=== PATIENT | male | born 1950 | race Caucasian/White ===

== ENCOUNTER 2019-05-15 11:47 | Inpatient (IN) | payer MEDICARE, OTHER ==
[2019-05-15] MEDS ORDERED: LORazepam 2 MG/ML INJ IV STA ×3 (12:22→15:30)
[2019-05-15] MEDS ORDERED: SODIUM CHLORIDE 0.9% 1,000 ML IV STA ×2 (12:22)
--- NOTE | 2019-05-15 12:32 | ED ---
Psych HPI - General Chief Complaint: Psychiatric Symptoms Stated Complaint: sent for 23hr medical eval Time Seen by Provider: 05/15/19 12:05 Source: family, RN notes reviewed Mode of arrival: wheelchair - History of Present Illness Initial Comments: This is a 68-year-old male with a history of depression and history of Shows stability seizures who for about the last one half months is been any change in his mental status per family members. He gets this he bad over last 2-3 days he's had fevers twitching of his extremities and diaphoretic chills at about a 15 pound weight loss during this same period time. He was sent here from his psychiatrist's office for evaluation the concern is for serotonin syndrome. He's been on Prozac for about 3 weeks along with Xanax. No other modifying factors currently MD Complaint: altered mental status, other - Related Data Home Medications Medication Instructions Recorded Confirmed Aspirin EC [Ecotrin Low Dose] 81 mg PO DAILY 05/15/19 05/15/19 Atorvastatin [Lipitor] 10 mg PO HS 05/15/19 05/15/19 Bisacodyl [Dulcolax] 10 mg RECTAL DAILY PRN 05/15/19 05/15/19 Calcitrate 950mg 950 mg PO DAILY 05/15/19 05/15/19 Ergocalciferol (Vitamin D2) 50,000 unit PO TU 05/15/19 05/15/19 [Vitamin D2] Lacosamide [Vimpat] 100 mg PO BID 05/15/19 05/15/19 Loratadine 10 mg PO DAILY PRN 05/15/19 05/15/19 Losartan/Hydrochlorothiazide 1 tab PO DAILY 05/15/19 05/15/19 [Losartan-Hctz 100-25 mg Tab] Magnesium Hydroxide [Milk of 1,600 mg PO DAILY PRN 05/15/19 05/15/19 Magnesia] Magnesium Oxide [Mag-Ox] 250 mg PO DAILY 05/15/19 05/15/19 Multivitamin,Therapeutic [Thera] 1 tab PO DAILY@1700 05/15/19 05/15/19 Na Phos,M-B/Na Phos,Di-Ba [Fleet 133 ml RECTAL DAILY PRN 05/15/19 05/15/19 Adult] Primidone [Mysoline] 50 mg PO BID 05/15/19 05/15/19 Ranitidine HCl [Zantac] 150 mg PO DAILY 05/15/19 05/15/19 lamoTRIgine [LaMICtal] 200 mg PO BID 05/15/19 05/15/19 Allergies Allergy/AdvReac Type Severity Reaction Status Date / Time clarithromycin [From Biaxin] Allergy Unknown Verified 05/15/19 12:40 Childhood Review of Systems ROS Statement: Those systems with pertinent positive or pertinent negative responses have been documented in the HPI. ROS Other: All systems not noted in ROS Statement are negative. Past Medical History Past Medical History: Hyperlipidemia, Seizure Disorder Additional Past Medical History / Comment(s): Mentally disabled, History of Any Multi-Drug Resistant Organisms: None Reported Past Surgical History: No Surgical Hx Reported Past Psychological History: Anxiety, Bipolar, Depression Smoking Status: Former smoker Past Alcohol Use History: None Reported Past Drug Use History: None Reported General Exam - General Exam Comments Initial Comments: Is a well-developed asthenic appearing male but noted to be hitting himself with shaking and tremors and swatting at himself and the air. Limitations: no limitations General appearance: alert, anxious, lethargic Head exam: Present: atraumatic, normocephalic, normal inspection Eye exam: Present: normal appearance, PERRL, EOMI. Absent: scleral icterus, conjunctival injection, periorbital swelling ENT exam: Present: mucous membranes dry Neck exam: Present: normal inspection. Absent: tenderness, meningismus, lymphadenopathy Respiratory exam: Present: normal lung sounds bilaterally. Absent: respiratory distress, wheezes, rales, rhonchi, stridor Cardiovascular Exam: Present: regular rate, normal rhythm, normal heart sounds. Absent: systolic murmur, diastolic murmur, rubs, gallop, clicks GI/Abdominal exam: Present: soft, normal bowel sounds. Absent: distended, tenderness, guarding, rebound, rigid Rectal exam: Present: deferred Extremities exam: Present: normal inspection, full ROM, normal capillary refill. Absent: tenderness, pedal edema, joint swelling, calf tenderness Back exam: Present: normal inspection Neurological exam: Present: alert, oriented X3, CN II-XII intact Psychiatric exam: Present: normal affect, normal mood Skin exam: Present: warm, intact, normal color, diaphoretic. Absent: rash Course Vital Signs 05/15/19 05/15/19 05/15/19 11:53 18:24 20:06 Pulse Rate 87 65 81 Respiratory 20 17 16 Rate Blood Pressure 134/75 134/75 O2 Sat by Pulse 93 L 94 L Oximetry - Reevaluation(s) Reevaluation #1: 05/15/19 20:13 Patient was reevaluated on multiple occasions he did require sedation to get the imaging studies done. This did take an extensive amount of time. Medical Decision Making - Medical Decision Making Patient is resting comfortably at this time after the medication was given IV fluids. I did discuss the case with caregivers I also discussed the case with Dr. Bansal. The patient will be admitted for IV fluids continued observation and psychiatric consultation in the morning. - Lab Data Result diagrams: 05/15/19 12:41 05/15/19 12:41 Lab Results 05/15/19 05/15/19 05/15/19 Range/Units 12:41 12:41 12:41 WBC 6.6 (3.8-10.6) k/uL RBC 4.02 L (4.30-5.90) m/uL Hgb 12.4 L (13.0-17.5) gm/dL Hct 37.1 L (39.0-53.0) % MCV 92.1 (80.0-100.0) fL MCH 30.8 (25.0-35.0) pg MCHC 33.4 (31.0-37.0) g/dL RDW 14.5 (11.5-15.5) % Plt Count 258 (150-450) k/uL Neutrophils % 69 % Lymphocytes % 19 % Monocytes % 7 % Eosinophils % 2 % Basophils % 0 % Neutrophils # 4.6 (1.3-7.7) k/uL Lymphocytes # 1.2 (1.0-4.8) k/uL Monocytes # 0.5 (0-1.0) k/uL Eosinophils # 0.1 (0-0.7) k/uL Basophils # 0.0 (0-0.2) k/uL Sodium 148 H (137-145) mmol/L Potassium 3.8 (3.5-5.1) mmol/L Chloride 107 (98-107) mmol/L Carbon Dioxide 30 (22-30) mmol/L Anion Gap 11 mmol/L BUN 38 H (9-20) mg/dL Creatinine 0.97 (0.66-1.25) mg/dL Est GFR (CKD-EPI)AfAm >90 (>60 ml/min/1.73 sqM) Est GFR (CKD-EPI)NonAf 79 (>60 ml/min/1.73 sqM) Glucose 122 H (74-99) mg/dL Plasma Lactic Acid Dean 2.0 (0.7-2.0) mmol/L Calcium 10.6 H (8.4-10.2) mg/dL Magnesium 1.9 (1.6-2.3) mg/dL Total Bilirubin 0.8 (0.2-1.3) mg/dL AST 43 (17-59) U/L ALT 27 (21-72) U/L Alkaline Phosphatase 68 (38-126) U/L Ammonia <9 (<30) umol/L Creatine Kinase 407 H (55-170) U/L Troponin I (0.000-0.034) ng/mL Total Protein 7.3 (6.3-8.2) g/dL Albumin 4.6 (3.5-5.0) g/dL Lipase 124 (23-300) U/L 05/15/19 Range/Units 12:41 WBC (3.8-10.6) k/uL RBC (4.30-5.90) m/uL Hgb (13.0-17.5) gm/dL Hct (39.0-53.0) % MCV (80.0-100.0) fL MCH (25.0-35.0) pg MCHC (31.0-37.0) g/dL RDW (11.5-15.5) % Plt Count (150-450) k/uL Neutrophils % % Lymphocytes % % Monocytes % % Eosinophils % % Basophils % % Neutrophils # (1.3-7.7) k/uL Lymphocytes # (1.0-4.8) k/uL Monocytes # (0-1.0) k/uL Eosinophils # (0-0.7) k/uL Basophils # (0-0.2) k/uL Sodium (137-145) mmol/L Potassium (3.5-5.1) mmol/L Chloride (98-107) mmol/L Carbon Dioxide (22-30) mmol/L Anion Gap mmol/L BUN (9-20) mg/dL Creatinine (0.66-1.25) mg/dL Est GFR (CKD-EPI)AfAm (>60 ml/min/1.73 sqM) Est GFR (CKD-EPI)NonAf (>60 ml/min/1.73 sqM) Glucose (74-99) mg/dL Plasma Lactic Acid Dean (0.7-2.0) mmol/L Calcium (8.4-10.2) mg/dL Magnesium (1.6-2.3) mg/dL Total Bilirubin (0.2-1.3) mg/dL AST (17-59) U/L ALT (21-72) U/L Alkaline Phosphatase (38-126) U/L Ammonia (<30) umol/L Creatine Kinase (55-170) U/L Troponin I <0.012 (0.000-0.034) ng/mL Total Protein (6.3-8.2) g/dL Albumin (3.5-5.0) g/dL Lipase (23-300) U/L - Radiology Data Radiology results: report reviewed (I did review the imaging and reports no evidence of acute findings. Chronic changes were noted.), image reviewed Disposition Clinical Impression: Serotonin syndrome, Drug-induced psychotic disorder Disposition: ADMITTED IP TO THIS [facility] Condition: Fair Referrals: Gerry Gonzales MD [Primary Care Provider] - 1-2 days
[2019-05-15 13:09] LABS: Basophils % (A) 0 %; Eosinophils # (A) 0.1 k/uL (0-0.7); Eosinophils % (A) 2 %; HCT 37.1 % (39.0-53.0); HGB 12.4 gm/dL (13.0-17.5); Lymphocytes # (A) 1.2 k/uL (1.0-4.8); Lymphocytes % (A) 19 %; MCH 30.8 pg (25.0-35.0); MCHC 33.4 g/dL (31.0-37.0); MCV 92.1 fL (80.0-100.0); Mean Platelet Volume 7.1; Monocytes # (A) 0.5 k/uL (0-1.0); Monocytes % (A) 7 %; Neutrophils # (A) 4.6 k/uL (1.3-7.7); Neutrophils % (A) 69 %; Platelet Count 258 k/uL (150-450); RBC 4.02 m/uL (4.30-5.90); RDW 14.5 % (11.5-15.5); WBC 6.6 k/uL (3.8-10.6)
[2019-05-15 13:15] LABS: Ammonia <9 umol/L (<30)
[2019-05-15 13:16] LABS: ALT 27 U/L (21-72); AST 43 U/L (17-59); African American GFR (CKD) >90 (>60 ml/min/1.73 sqM); Albumin 4.6 g/dL (3.5-5.0); Alkaline Phosphatase 68 U/L (38-126); Anion Gap 11 mmol/L; Blood Urea Nitrogen 38 mg/dL (9-20); Calcium 10.6 mg/dL (8.4-10.2); Carbon Dioxide 30 mmol/L (22-30); Chloride 107 mmol/L (98-107); Creatine Kinase 407 U/L (55-170); Glucose 122 mg/dL (74-99); Lipase 124 U/L (23-300); Magnesium 1.9 mg/dL (1.6-2.3); Potassium 3.8 mmol/L (3.5-5.1); Sodium 148 mmol/L (137-145); Total Bilirubin 0.8 mg/dL (0.2-1.3); Total Protein 7.3 g/dL (6.3-8.2)
[2019-05-15] MEDS ORDERED: KETAMINE 50 MG/ML 10 ML VIAL IM ONE (14:01)
--- NOTE | 2019-05-15 17:01 | CT ---
EXAMINATION TYPE: CT brain wo con DATE OF EXAM: 05/15/2019 COMPARISON: 07/31/2009 HISTORY: Mental status changes CT DLP: 1476.4 mGycm Automated exposure control for dose reduction was used. FINDINGS: There is cerebral cortical atrophy. There is no mass effect nor midline shift. There is no evidence o f intracranial hemorrhage. The calvarium is intact. There is hypodensity in the periventricular white matter. IMPRESSION: CEREBRAL ATROPHY AND CHRONIC SMALL VESSEL ISCHEMIA. THIS HAS PROGRESSED COMPARED TO OLD EXAM. NO ACUT E INTRACRANIAL ABNORMALITY.
--- NOTE | 2019-05-15 17:10 | XR ---
EXAMINATION TYPE: XR chest 2V DATE OF EXAM: 05/15/2019 COMPARISON: NONE HISTORY: Cough TECHNIQUE: Frontal and lateral views of the chest are obtained. FINDINGS: There is elevated right diaphragm. Heart size is normal. There is no heart failure. There is no sign of pleural effusion. Bony thorax is intact. IMPRESSION: Mild elevated right diaphragm could relate to partial paralysis. Normal heart.
[2019-05-15] MEDS ORDERED: NALOXONE 0.4 MG/ML 1 ML VIAL IV PRN (20:18)
[2019-05-15] MEDS ORDERED: BISACODYL 10 MG SUPP RECTAL PRN (20:21)
[2019-05-15] MEDS ORDERED: LORATADINE 10 MG TAB PO PRN (20:21)
[2019-05-15] MEDS ORDERED: NA PHOS,M-B/NA PHOS,DI-BA 133 ML ENEMA RECTAL PRN (20:21)
--- NOTE | 2019-05-15 20:26 | ED ---
Medical Decision Making - Lab Data Result diagrams: 05/15/19 12:41 05/15/19 12:41 Lab Results 05/15/19 05/15/19 05/15/19 Range/Units 12:41 12:41 12:41 WBC 6.6 (3.8-10.6) k/uL RBC 4.02 L (4.30-5.90) m/uL Hgb 12.4 L (13.0-17.5) gm/dL Hct 37.1 L (39.0-53.0) % MCV 92.1 (80.0-100.0) fL MCH 30.8 (25.0-35.0) pg MCHC 33.4 (31.0-37.0) g/dL RDW 14.5 (11.5-15.5) % Plt Count 258 (150-450) k/uL Neutrophils % 69 % Lymphocytes % 19 % Monocytes % 7 % Eosinophils % 2 % Basophils % 0 % Neutrophils # 4.6 (1.3-7.7) k/uL Lymphocytes # 1.2 (1.0-4.8) k/uL Monocytes # 0.5 (0-1.0) k/uL Eosinophils # 0.1 (0-0.7) k/uL Basophils # 0.0 (0-0.2) k/uL Sodium 148 H (137-145) mmol/L Potassium 3.8 (3.5-5.1) mmol/L Chloride 107 (98-107) mmol/L Carbon Dioxide 30 (22-30) mmol/L Anion Gap 11 mmol/L BUN 38 H (9-20) mg/dL Creatinine 0.97 (0.66-1.25) mg/dL Est GFR (CKD-EPI)AfAm >90 (>60 ml/min/1.73 sqM) Est GFR (CKD-EPI)NonAf 79 (>60 ml/min/1.73 sqM) Glucose 122 H (74-99) mg/dL Plasma Lactic Acid Dean 2.0 (0.7-2.0) mmol/L Calcium 10.6 H (8.4-10.2) mg/dL Magnesium 1.9 (1.6-2.3) mg/dL Total Bilirubin 0.8 (0.2-1.3) mg/dL AST 43 (17-59) U/L ALT 27 (21-72) U/L Alkaline Phosphatase 68 (38-126) U/L Ammonia <9 (<30) umol/L Creatine Kinase 407 H (55-170) U/L Troponin I (0.000-0.034) ng/mL Total Protein 7.3 (6.3-8.2) g/dL Albumin 4.6 (3.5-5.0) g/dL Lipase 124 (23-300) U/L 05/15/19 Range/Units 12:41 WBC (3.8-10.6) k/uL RBC (4.30-5.90) m/uL Hgb (13.0-17.5) gm/dL Hct (39.0-53.0) % MCV (80.0-100.0) fL MCH (25.0-35.0) pg MCHC (31.0-37.0) g/dL RDW (11.5-15.5) % Plt Count (150-450) k/uL Neutrophils % % Lymphocytes % % Monocytes % % Eosinophils % % Basophils % % Neutrophils # (1.3-7.7) k/uL Lymphocytes # (1.0-4.8) k/uL Monocytes # (0-1.0) k/uL Eosinophils # (0-0.7) k/uL Basophils # (0-0.2) k/uL Sodium (137-145) mmol/L Potassium (3.5-5.1) mmol/L Chloride (98-107) mmol/L Carbon Dioxide (22-30) mmol/L Anion Gap mmol/L BUN (9-20) mg/dL Creatinine (0.66-1.25) mg/dL Est GFR (CKD-EPI)AfAm (>60 ml/min/1.73 sqM) Est GFR (CKD-EPI)NonAf (>60 ml/min/1.73 sqM) Glucose (74-99) mg/dL Plasma Lactic Acid Dean (0.7-2.0) mmol/L Calcium (8.4-10.2) mg/dL Magnesium (1.6-2.3) mg/dL Total Bilirubin (0.2-1.3) mg/dL AST (17-59) U/L ALT (21-72) U/L Alkaline Phosphatase (38-126) U/L Ammonia (<30) umol/L Creatine Kinase (55-170) U/L Troponin I <0.012 (0.000-0.034) ng/mL Total Protein (6.3-8.2) g/dL Albumin (3.5-5.0) g/dL Lipase (23-300) U/L Critical Care Time Critical Care Time: Yes Critical Care Time: 43 minutes of critical care time which includes initial presentation with history physical labs x-rays multiple reevaluation the patient to responsive therapy discussion the caregivers discussion with the main physician admission orders and documentation of the above Disposition Clinical Impression: Serotonin syndrome, Drug-induced psychotic disorder, Rhabdomyolysis Disposition: ADMITTED IP TO THIS HOSP Condition: Fair Referrals: Gerry Gonzales MD [Primary Care Provider] - 1-2 days
[2019-05-15] MEDS ORDERED: SODIUM CHLORIDE 0.9% 1,000 ML IV SCH (20:30)
[2019-05-15] MEDS: SODIUM CHLORIDE 0.9% 1,000 ML IV SCH (22:00)
[2019-05-15] MEDS: LORazepam 2 MG/ML INJ IV PRN (22:58)
[2019-05-15] MEDS: LACOSAMIDE 50 MG TABLET PO SCH (23:09)
[2019-05-15] MEDS: ATORVASTATIN 10 MG TAB PO SCH (23:09)
[2019-05-15] MEDS: PRIMIDONE 50 MG TAB PO SCH (23:10)
--- NOTE | 2019-05-16 00:21 | P.HPIM ---
History of Present Illness H&P Date: 05/15/19 The patient is a 68 yo M with a PMH of intellectual disability, resident of a group-home, depression, HTN, HLD, and seizure disorder with a public guardian was sent to the ED by his psychiatrists for suspected seratonin syndrome. History obtained from the RN, ED provider, and documentation since patient unable to provide history. The patient was apparently started on Prozac 3 weeks ago and subsequently developed agitation, confusion, and muscle rigidity 2 days ago. Attempted to reach public guardian for further information, left voicemail. The patient underwent an extensive evaluation in the ED w/ Brain CT showing cerebral atrophy and small vessel ischemia. CXR revealed mild R diaphragm elev ation. Laboratory evaluation revealed BUN 38, Cr 0.97, WBC 6.6, Hgb 12.4, and K 3.8. The patient is admitted to the medicine unit for subsequent management. Review of Systems Pertinent positives and negatives as discussed in HPI, a complete review of systems was performed and all other systems are negative. Past Medical History Past Medical History: Hyperlipidemia, Seizure Disorder Additional Past Medical History / Comment(s): Mentally disabled, History of Any Multi-Drug Resistant Organisms: None Reported Past Surgical History: No Surgical Hx Reported Past Psychological History: Anxiety, Bipolar, Depression Smoking Status: Former smoker Past Alcohol Use History: None Reported Past Drug Use History: None Reported - Past Family History Father Family Medical History: Unable to Obtain Medications and Allergies Home Medications Medication Instructions Recorded Confirmed Type Aspirin EC [Ecotrin Low Dose] 81 mg PO DAILY 05/15/19 05/15/19 History Atorvastatin [Lipitor] 10 mg PO HS 05/15/19 05/15/19 History Bisacodyl [Dulcolax] 10 mg RECTAL DAILY PRN 05/15/19 05/15/19 History Calcitrate 950mg 950 mg PO DAILY 05/15/19 05/15/19 History Ergocalciferol (Vitamin D2) 50,000 unit PO TU 05/15/19 05/15/19 History [Vitamin D2] Lacosamide [Vimpat] 100 mg PO BID 05/15/19 05/15/19 History Loratadine 10 mg PO DAILY PRN 05/15/19 05/15/19 History Losartan/Hydrochlorothiazide 1 tab PO DAILY 05/15/19 05/15/19 History [Losartan-Hctz 100-25 mg Tab] Magnesium Hydroxide [Milk of 1,600 mg PO DAILY PRN 05/15/19 05/15/19 History Magnesia] Magnesium Oxide [Mag-Ox] 250 mg PO DAILY 05/15/19 05/15/19 History Multivitamin,Therapeutic [Thera] 1 tab PO DAILY@1700 05/15/19 05/15/19 History Na Phos,M-B/Na Phos,Di-Ba [Fleet 133 ml RECTAL DAILY PRN 05/15/19 05/15/19 History Adult] Primidone [Mysoline] 50 mg PO BID 05/15/19 05/15/19 History Ranitidine HCl [Zantac] 150 mg PO DAILY 05/15/19 05/15/19 History lamoTRIgine [LaMICtal] 200 mg PO BID 05/15/19 05/15/19 History Allergies Allergy/AdvReac Type Severity Reaction Status Date / Time clarithromycin [From Biaxin] Allergy Unknown Verified 05/15/19 12:40 Childhood Physical Exam Vitals: Vital Signs Temp Pulse Pulse Resp BP BP Pulse Ox 05/15/19 22:04 97.6 F 83 16 141/88 98 05/15/19 20:06 81 16 134/75 05/15/19 18:24 65 17 134/75 94 L 05/15/19 11:53 87 20 93 L Intake and Output 05/15/19 05/15/19 05/16/19 14:59 22:59 06:59 Other: Weight 60.328 kg General: restless M, moving all extremities, appears at stated age, normal weight Derm: no unusual rashes/lesions no unusual ecchymoses, warm, dry Head: atraumatic, normocephalic, symmetric Eyes: Anicteric sclera, pupils equal round reactive to light ENT: Nose and ears atraumatic, no thrush Neck: No cervical lymphadenopathy, trachea midline, supple Mouth: no lip lesion, mucus membranes dry Cardiovascular: S1S2 reg, no murmur, positive posterior tibial pulse bilateral, no edema, capillary refill less than 2 seconds Lungs: CTA bilateral, no rhonchi, no rales , no accessory muscle use Abdominal: soft, nontender to palpation, no guarding, no appreciable organomegaly, normal bowel sounds Ext: no gross muscle atrophy, muscular rigidity noted, no contractures, Neuro: Following very basic commands, not answering questions appropriately Results CBC & Chem 7: 05/15/19 12:41 05/15/19 12:41 Labs: Abnormal Lab Results - Last 24 Hours (Table) 05/15/19 05/15/19 Range/Units 12:41 12:41 RBC 4.02 L (4.30-5.90) m/uL Hgb 12.4 L (13.0-17.5) gm/dL Hct 37.1 L (39.0-53.0) % Sodium 148 H (137-145) mmol/L BUN 38 H (9-20) mg/dL Glucose 122 H (74-99) mg/dL Calcium 10.6 H (8.4-10.2) mg/dL Creatine Kinase 407 H (55-170) U/L Assessment and Plan Plan: Altered mental status, muscular rigidity, 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 If develops hypertension or becomes febrile or fails to respond to benzos, will consider anti-seratonin agents Rhabdomyolysis -C/w NS 150 cc/hr -Monitor CK levels Pre-renal azotemia -IVFs NS 150 cc/hr Depression -Psychiatry consulted Chronic conditions: HTN, HLD, Seizure disorder -C/w home meds DVT prophylaxis -Heparin The patient is admitted with an anticipated less than 2 midnight stay for evaluation of seratonin syndrome. CODE STATUS:Full Code Anticipated discharge date: 05/18/[address]: Group-Home A total of 40 minutes was spent on the care of this complex patient more than 50% of the time was spent in counseling and care coordination.
[2019-05-16] MEDS: LORazepam 2 MG/ML INJ IV PRN ×5 (00:46→22:02)
[2019-05-16] MEDS ORDERED: LORazepam 2 MG/ML INJ IV STA (01:05)
[2019-05-16 07:33] LABS: HCT 31.1 % (39.0-53.0); HGB 10.5 gm/dL (13.0-17.5); MCH 30.7 pg (25.0-35.0); MCHC 33.7 g/dL (31.0-37.0); MCV 91.3 fL (80.0-100.0); Mean Platelet Volume 6.2; Platelet Count 184 k/uL (150-450); RBC 3.41 m/uL (4.30-5.90); RDW 13.4 % (11.5-15.5); WBC 4.6 k/uL (3.8-10.6)
[2019-05-16 07:55] LABS: ALT 35 U/L (21-72); AST 66 U/L (17-59); African American GFR (CKD) >90 (>60 ml/min/1.73 sqM); Albumin 3.4 g/dL (3.5-5.0); Alkaline Phosphatase 50 U/L (38-126); Anion Gap 9 mmol/L; Blood Urea Nitrogen 30 mg/dL (9-20); Calcium 9.2 mg/dL (8.4-10.2); Carbon Dioxide 28 mmol/L (22-30); Chloride 111 mmol/L (98-107); Glucose 94 mg/dL (74-99); Potassium 2.9 mmol/L (3.5-5.1); Sodium 148 mmol/L (137-145); Total Bilirubin 0.6 mg/dL (0.2-1.3); Total Protein 5.8 g/dL (6.3-8.2)
[2019-05-16 08:27] LABS: Creatine Kinase 1149 U/L (55-170)
[2019-05-16] MEDS ORDERED: CALCITRATE 950 MG PO SCH (09:00)
[2019-05-16] MEDS ORDERED: Potassium Replacement Protocol 1 EACH MISC MISCELLANE PRN (09:09)
[2019-05-16] MEDS: POTASSIUM CHLORIDE 10 MEQ in WATER FOR INJECTION 1 100ML.BAG IVPB SCH ×6 (10:20→17:03)
[2019-05-16] MEDS: MAGNESIUM OXIDE 400 MG TAB PO SCH (10:30)
[2019-05-16] MEDS: LACOSAMIDE 50 MG TABLET PO SCH ×2 (10:30→21:49)
[2019-05-16] MEDS: LOSARTAN-HCTZ 50-12.5 MG 1 EACH TAB PO SCH (10:30)
[2019-05-16] MEDS: HEPARIN SODIUM,PORCINE 5,000 UNIT/ML 1 ML VIAL SQ SCH ×3 (10:33→23:29)
[2019-05-16] MEDS: FAMOTIDINE 20 MG TAB PO SCH (10:33)
[2019-05-16] MEDS: ASPIRIN 81 MG PO SCH (10:33)
[2019-05-16] MEDS: PRIMIDONE 50 MG TAB PO SCH ×2 (10:34→21:49)
--- NOTE | 2019-05-16 12:42 | P.PN ---
Subjective Progress Note Date: 05/16/19 Pt. is more awake this morning and is responding to verbal simple questions. Nurse reported that pt. had rough night due to his agitation and did received high doses of ATIVAN, but now is doing better. Unable to do reliable ROS due to pt's mental status but nurse reported no fevers. In review of labs it was noted that pt's potassium has dropped to 2.9, BUN improving and CPK has gone up to 1149 from 407 last night. Objective - Vital Signs Vital signs: Vital Signs Temp 98.2 F 05/16/19 01:59 Pulse 82 05/16/19 09:21 Resp 17 05/16/19 09:21 BP 119/67 05/16/19 09:21 Pulse Ox 95 05/16/19 09:21 Intake & Output 05/15/19 05/16/19 05/16/19 18:59 06:59 18:59 Intake Total 900 Balance 900 Weight 60.328 kg Intake: Intake, IV Titration 900 Amount Sodium Chloride 0.9% 1, 900 000 ml @ 150 mls/hr IV . Q6H40M [facility] Rx#:[id number] Other: Voiding Method Diaper Diaper Incontinent Incontinent # Voids 2 - Constitutional General appearance: Present: cooperative, no acute distress - EENT Eyes: Present: EOMI, normal appearance ENT: Present: hearing grossly normal - Respiratory Respiratory: bilateral: CTA (No wheezes/ronchi/crackles heard.) - Cardiovascular Rhythm: regular Heart sounds: normal: S1, S2 Abnormal Heart Sounds: Absent: systolic murmur, diastolic murmur, S3 Gallop, S4 Gallop - Gastrointestinal General gastrointestinal: Present: normal bowel sounds, soft. Absent: distended, rigid, tenderness - Neurologic Neurologic Comment(s): Moves all four extremities randomly, muscle tone is normal and no muscle tenderness is noted on today's exam. - Labs CBC & Chem 7: 05/16/19 06:54 05/16/19 06:54 Labs: Abnormal Lab Results - Last 24 Hours (Table) 05/15/19 05/15/19 05/16/19 Range/Units 12:41 12:41 06:54 RBC 4.02 L 3.41 L (4.30-5.90) m/uL Hgb 12.4 L 10.5 L (13.0-17.5) gm/dL Hct 37.1 L 31.1 L (39.0-53.0) % Sodium 148 H (137-145) mmol/L Potassium (3.5-5.1) mmol/L Chloride (98-107) mmol/L BUN 38 H (9-20) mg/dL Glucose 122 H (74-99) mg/dL Calcium 10.6 H (8.4-10.2) mg/dL AST (17-59) U/L Creatine Kinase 407 H (55-170) U/L Total Protein (6.3-8.2) g/dL Albumin (3.5-5.0) g/dL 05/16/19 Range/Units 06:54 RBC (4.30-5.90) m/uL Hgb (13.0-17.5) gm/dL Hct (39.0-53.0) % Sodium 148 H (137-145) mmol/L Potassium 2.9 L (3.5-5.1) mmol/L Chloride 111 H (98-107) mmol/L BUN 30 H (9-20) mg/dL Glucose (74-99) mg/dL Calcium (8.4-10.2) mg/dL AST 66 H (17-59) U/L Creatine Kinase 1149 H* (55-170) U/L Total Protein 5.8 L (6.3-8.2) g/dL Albumin 3.4 L (3.5-5.0) g/dL Assessment and Plan (1) Hypokalemia Current Visit: Yes Status: Acute Priority: High Code(s): E87.6 - HYPOKALEMIA SNOMED Code(s): 17868284 (2) Drug-induced psychotic disorder Current Visit: Yes Status: Acute Priority: High Code(s): F19.959 - OTH PSYCHOACTV SUBSTANCE USE, UNSP W PSYCH DISORDER, UNSP SNOMED Code(s): 251636885 (3) Rhabdomyolysis Current Visit: Yes Status: Acute Priority: High Code(s): M62.82 - RHABDOMYOLYSIS SNOMED Code(s): 295238757 (4) Serotonin syndrome Current Visit: Yes Status: Acute Priority: High Code(s): G25.79 - OTHER DRUG INDUCED MOVEMENT DISORDERS SNOMED Code(s): 884830282 Plan: Clinically pt. is improving, will continue current management. Will replace potassium and monitor. I/V fluids will be continued and CPK will be re-checked in the morning. Pt's BP is better controlled as he is now not agitated nor in distress, will continue to monitor. Time with Patient: Less than 30
[2019-05-16] MEDS: MULTIVITAMINS, THERA 1 EACH TAB PO SCH (17:07)
[2019-05-16] MEDS: SODIUM CHLORIDE 0.9% 1,000 ML IV SCH ×2 (21:49→22:06)
[2019-05-16] MEDS: ATORVASTATIN 10 MG TAB PO SCH (21:49)
[2019-05-17] MEDS: SODIUM CHLORIDE 0.9% 1,000 ML IV SCH ×4 (05:24→23:02)
[2019-05-17] MEDS: HEPARIN SODIUM,PORCINE 5,000 UNIT/ML 1 ML VIAL SQ SCH ×3 (11:22→23:02)
[2019-05-17] MEDS: ASPIRIN 81 MG PO SCH (11:22)
[2019-05-17] MEDS: FAMOTIDINE 20 MG TAB PO SCH (11:22)
[2019-05-17 12:02] LABS: African American GFR (CKD) >90 (>60 ml/min/1.73 sqM); Anion Gap 6 mmol/L; Blood Urea Nitrogen 15 mg/dL (9-20); Calcium 8.5 mg/dL (8.4-10.2); Carbon Dioxide 27 mmol/L (22-30); Chloride 106 mmol/L (98-107); Creatine Kinase 561 U/L (55-170); Glucose 106 mg/dL (74-99); Potassium 3.6 mmol/L (3.5-5.1); Sodium 139 mmol/L (137-145)
--- NOTE | 2019-05-17 12:11 | P.PN ---
Subjective Progress Note Date: 05/17/19 Patient is sleeping today but his behavior is overall improving. Nurses reported the patient received Ativan 1 dose overnight for his agitation otherwise patient remained stable most of the night. Nurses reported that she was able to get hold of the custodial personnel and it was reported that baseline patient is fairly active and rolls his own wheelchair. But today's patient's condition of drowsiness seems to be declining from his baseline status. Patient woke up with verbal commands and denied all of the review system but I doubt the reliability due to presence of his mental retardation. Objective - Vital Signs Vital signs: Vital Signs Temp 98.2 F 05/17/19 06:54 Pulse 70 05/17/19 08:00 Resp 16 05/17/19 08:00 BP 167/69 05/17/19 06:54 Pulse Ox 96 05/17/19 06:54 Intake & Output 05/16/19 05/17/19 05/17/19 18:59 06:59 18:59 Intake Total 320 1800 100 Balance 320 1800 100 Intake: Intake, IV Titration 1800 Amount Potassium Chloride 10 meq 600 In Water For Injection 1 100ml.bag @ 100 mls/hr IVPB Q1HR [facility] Rx#: [id number] Sodium Chloride 0.9% 1, 1200 000 ml @ 150 mls/hr IV . Q6H40M [facility] Rx#:[id number] Oral 320 100 Other: Voiding Method Diaper Diaper Diaper Incontinent Incontinent Incontinent # Voids 1 1 - Constitutional Constitutional Comment(s): Pleasantly confused and drowsy. - Respiratory Details: Clear to auscultation, no rhonchi, wheezes, crackles appreciated. - Cardiovascular Details: Rate rhythm regular, S1-S2 positive, no gallops or murmur appreciated. - Gastrointestinal Gastrointestinal Comment(s): Abdomen soft, bowel sounds positive, nontender/distended abdomen. - Musculoskeletal Musculoskeletal Comment(s): Normal tone of the muscles of the upper and lower extremities. No muscle tenderness appreciated. - Labs CBC & Chem 7: 05/16/19 06:54 05/17/19 11:00 Labs: Abnormal Lab Results - Last 24 Hours (Table) 05/16/19 05/17/19 Range/Units 18:41 11:00 Potassium 5.9 H (3.5-5.1) mmol/L Creatinine 0.58 L (0.66-1.25) mg/dL Glucose 106 H (74-99) mg/dL Creatine Kinase 561 H (55-170) U/L Assessment and Plan (1) Hypokalemia Current Visit: Yes Status: Acute Priority: High Code(s): E87.6 - HYPOKALEMIA SNOMED Code(s): 14983514 (2) Drug-induced psychotic disorder Current Visit: Yes Status: Acute Priority: High Code(s): F19.959 - OTH PSYCHOACTV SUBSTANCE USE, UNSP W PSYCH DISORDER, UNSP SNOMED Code(s): 311740426 (3) Rhabdomyolysis Current Visit: Yes Status: Acute Priority: High Code(s): M62.82 - RHABDOMYOLYSIS SNOMED Code(s): 113657660 (4) Serotonin syndrome Current Visit: Yes Status: Acute Priority: High Code(s): G25.79 - OTHER DRUG INDUCED MOVEMENT DISORDERS SNOMED Code(s): 020587394 Plan: Patient's creatine phosphokinase is improving, we will continue IV hydration. Patient's Prozac has been discontinued and will not be started until patient follows up with his own psychiatrist and then further recommendation medication for depression will be started. I will continue when necessary Ativan just in case if it is needed overnight. Once benzodiazepine effects are improved patient will be more awake and will be able to come Better. At this point no clinical evidence of any other metabolic causes relating to patient's drowsiness other than use of Ativan, as evident. No reported breakthrough seizure activity since admissions. We'll continue current management and will plan to discharge patient back to the custodial in 1-2 days if remains stable. Time with Patient: Less than 30
[2019-05-17] MEDS: MAGNESIUM OXIDE 400 MG TAB PO SCH (13:06)
[2019-05-17] MEDS: PRIMIDONE 50 MG TAB PO SCH ×2 (13:06→20:01)
[2019-05-17] MEDS: LOSARTAN-HCTZ 50-12.5 MG 1 EACH TAB PO SCH (13:06)
[2019-05-17] MEDS: LACOSAMIDE 50 MG TABLET PO SCH ×2 (13:06→20:01)
[2019-05-17] MEDS: MULTIVITAMINS, THERA 1 EACH TAB PO SCH (16:51)
[2019-05-17] MEDS: ATORVASTATIN 10 MG TAB PO SCH (20:01)
[2019-05-18] MEDS: LORazepam 2 MG/ML INJ IV PRN (02:57)
[2019-05-18] MEDS: SODIUM CHLORIDE 0.9% 1,000 ML IV SCH ×2 (04:29→12:14)
[2019-05-18 05:43] VITALS: BP 166/81; PULSE 79; RESP 22; TEMP 97.8
[2019-05-18] MEDS: ASPIRIN 81 MG PO SCH (08:33)
[2019-05-18] MEDS: HEPARIN SODIUM,PORCINE 5,000 UNIT/ML 1 ML VIAL SQ SCH (08:33)
[2019-05-18] MEDS: LOSARTAN-HCTZ 50-12.5 MG 1 EACH TAB PO SCH (08:33)
[2019-05-18] MEDS: PRIMIDONE 50 MG TAB PO SCH (08:34)
[2019-05-18] MEDS: MAGNESIUM OXIDE 400 MG TAB PO SCH (08:34)
[2019-05-18] MEDS: LACOSAMIDE 50 MG TABLET PO SCH (08:34)
[2019-05-18] MEDS: FAMOTIDINE 20 MG TAB PO SCH (08:34)
--- NOTE | 2019-05-18 11:25 | P.DS ---
Providers Date of admission: 05/17/19 10:38 Expected date of discharge: 05/18/19 Attending physician: Thaddeus Bansal MD Primary care physician: Gerry Gonzales [facility] Course: Discharge Diagnosis: Seratonin syndrome Toxic metabolic encephalopathy due to above Rhabdomyolysis pre-reanl azotemia with dehydration Dyslipidemia Depression Hypertension Seizure disorder Hospital Course: Patient is a 68-year-old male past medical history of intellectual disability and id a resident of a [facility], he suffers depression and was recently started on Prozac 3 weeks ago, hypertension, dyslipidemia, and seizure disorder who presented to the emergency department at the direction of his psychiatrist for worries of serotonin syndrome. Apparently he was started on Prozac 3 weeks ago and has developed agitation, confusion, and muscle rigidity for the 2 days prior to admission. In the ER here he underwent extensive evaluation. He was found to be slightly dehydrated with a sodium of 148 BUN of 38. His creatine kinase was slightly elevated at 407. He was also found to have elevated calcium level at 10.6. His Prozac was held. Started on IV fluids. By the next morning and slightly lower potassium level at 2.9 and this was aggressively replaced. His creatine kinase elevated to 1149. He was maintained on IV fluids. By the morning of 05/18 he appeared greatly improved. He was not having any agitation, his confusion and muscle weakness appears at baseline, his muscle rigidity had completely resolved. He also was well hydrated on the morning of 05/17 with a BUN 15. He was determined stable for discharge home. We recommend staying off of his Prozac can be reevaluated by psychiatry. I also asked his [facility] to ensure he drinks a minimum of 48 ounces of water daily for the next 3 days. Patient seen and examined at bedside. Denies pain, nausea, or vomiting. Vital signs reviewed and stable. General: non toxic, no distress, appears at stated age Derm: warm, dry Head: atraumatic, normocephalic, symmetric Eyes: EOMI, no lid lag, anicteric sclera Mouth: no lip lesion, mucus membranes moist Cardiovascular: S1S2 reg, no murmur, positive posterior tibial pulse bilateral, Lungs: CTA bilateral, no rhonchi, no rales , no accessory muscle use Ext: no gross muscle atrophy, no edema, no contractures Neuro: CN II-XI grossly intact, no focal neuro deficits, no muscle rigidity, no clonous, intention tremor. Psych: Alert, oriented, appropriate affect A total of 35 minutes of time were spent preparing this complex discharge summary . Pertinent Studies: CT head-cerebral atrophy and chronic small vessel ischemia Patient Condition at Discharge: Fair Plan - Discharge Summary New Discharge Prescriptions: Continue Loratadine 10 mg PO DAILY PRN PRN Reason: Allergy Symptoms Na Phos,M-B/Na Phos,Di-Ba [Fleet Adult] 133 ml RECTAL DAILY PRN PRN Reason: Constipation Ergocalciferol (Vitamin D2) [Vitamin D2] 50,000 unit PO TU Bisacodyl [Dulcolax] 10 mg RECTAL DAILY PRN PRN Reason: Constipation Ranitidine HCl [Zantac] 150 mg PO DAILY Multivitamin,Therapeutic [Thera] 1 tab PO DAILY@1700 Lacosamide [Vimpat] 100 mg PO BID Primidone [Mysoline] 50 mg PO BID Magnesium Oxide [Mag-Ox] 250 mg PO DAILY Losartan/Hydrochlorothiazide [Losartan-Hctz 100-25 mg Tab] 1 tab PO DAILY lamoTRIgine [LaMICtal] 200 mg PO BID Calcitrate 950mg 950 mg PO DAILY Atorvastatin [Lipitor] 10 mg PO HS Aspirin EC [Ecotrin Low Dose] 81 mg PO DAILY Magnesium Hydroxide [Milk of Magnesia] 1,600 mg PO DAILY PRN PRN Reason: Constipation Discharge Medication List Aspirin EC [Ecotrin Low Dose] 81 mg PO DAILY 05/15/19 [History] Atorvastatin [Lipitor] 10 mg PO HS 05/15/19 [History] Bisacodyl [Dulcolax] 10 mg RECTAL DAILY PRN 05/15/19 [History] Calcitrate 950mg 950 mg PO DAILY 05/15/19 [History] Ergocalciferol (Vitamin D2) [Vitamin D2] 50,000 unit PO TU 05/15/19 [History] Lacosamide [Vimpat] 100 mg PO BID 05/15/19 [History] Loratadine 10 mg PO DAILY PRN 05/15/19 [History] Losartan/Hydrochlorothiazide [Losartan-Hctz 100-25 mg Tab] 1 tab PO DAILY 05/15/19 [History] Magnesium Hydroxide [Milk of Magnesia] 1,600 mg PO DAILY PRN 05/15/19 [History] Magnesium Oxide [Mag-Ox] 250 mg PO DAILY 05/15/19 [History] Multivitamin,Therapeutic [Thera] 1 tab PO DAILY@1700 05/15/19 [History] Na Phos,M-B/Na Phos,Di-Ba [Fleet Adult] 133 ml RECTAL DAILY PRN 05/15/19 [History] Primidone [Mysoline] 50 mg PO BID 05/15/19 [History] Ranitidine HCl [Zantac] 150 mg PO DAILY 05/15/19 [History] lamoTRIgine [LaMICtal] 200 mg PO BID 05/15/19 [History] Follow up Appointment(s)/Referral(s): Gerry Gonzales MD [Primary Care Provider] - 1-2 days Activity/Diet/Wound Care/Special Instructions: NursePlease update [facility] at d/c. [phone]. Please call [facility] at d/c for transport back to [facility]. Encourage oral fluid intake 48 ounces of water daily (for a minimum) for the next 3 days Follow-up with his psychiatrist in 1 week, stay off prozac
[2019-05-21] MEDS ORDERED: ERGOCALCIFEROL 50,000 UNIT CAP PO SCH (09:00)
== END 2019-05-18 14:08 | disposition home or self-care (01) | DRG 92 ==
LOC: EC 11:47 → EEVIPCON 11:47 → 4SSUR 20:22 → OBSVTOIN 05-17 10:38
PROVIDERS: ADMIT Internal Medicine; ATTEND Internal Medicine
DX: G92 Toxic encephalopathy (principal); M62.82 Rhabdomyolysis; T43.225A Adverse effect of selective serotonin reuptake inhibitors, initial encounter; E78.5 Hyperlipidemia, unspecified; E83.52 Hypercalcemia; E86.0 Dehydration; E87.6 Hypokalemia; F19.959 Other psychoactive substance use, unspecified with psychoactive substance-induced psychotic disorder, unspecified; F31.9 Bipolar disorder, unspecified; F41.9 Anxiety disorder, unspecified; F79 Unspecified intellectual disabilities; G40.909 Epilepsy, unspecified, not intractable, without status epilepticus; I10 Essential (primary) hypertension; J98.6 Disorders of diaphragm; Z79.82 Long term (current) use of aspirin; Z79.899 Other long term (current) drug therapy; Z87.891 Personal history of nicotine dependence; Z88.1 Allergy status to other antibiotic agents
CPT/HCPCS: 36415; 70450; 71046; 80048; 80053; 82140; 82550; 83605; 83690; 83735; 84132; 84484; 85025; 85027; 96361; 96372; 96374; 96376; 99291